=== PATIENT | female | born 1945 | race Caucasian/White ===

== ENCOUNTER 2017-09-29 10:19 | Outpatient (CLI) | payer OTHER | END 2017-09-29 19:10 | disposition home or self-care (01) | LOC: SMA 10:19 | PROVIDERS: ATTEND Internal Medicine | DX: Z12.31 Encounter for screening mammogram for malignant neoplasm of breast (principal) | CPT/HCPCS: G0202 ==

== ENCOUNTER 2019-12-29 10:40 | Outpatient (CLI) | payer OTHER | END 2019-12-29 21:03 | disposition home or self-care (01) | LOC: SMA 10:40 | PROVIDERS: ATTEND Internal Medicine | DX: Z12.31 Encounter for screening mammogram for malignant neoplasm of breast (principal); N64.89 Other specified disorders of breast | CPT/HCPCS: 77066 ==